=== PATIENT | female | born 1990 | race Caucasian/White ===

== ENCOUNTER 2017-07-10 21:11 | Emergency (ER) ==
[2017-07-10 21:24] VITALS: BP 126/85; TEMP 99.1; BMI 30.3
[2017-07-10] MEDS ORDERED: LIDOCAINE HCL 1% SDV ONE (22:01)
[2017-07-10] MEDS ORDERED: LIDOCAINE HCL 1% SDV SUBCUT STA (22:25)
[2017-07-10] MEDS ORDERED: LIDOCAINE HCL 4% 5 ML AMP INJ STA ×2 (22:40→23:04)
[2017-07-10] MEDS ORDERED: LIDOCAINE HCL 4% 5 ML AMP ONE (22:48)
[2017-07-10] MEDS ORDERED: LIDOCAINE 2% 20 ML MDV INJ STA (22:50)
[2017-07-10] MEDS ORDERED: LIDOCAINE 2% 2ML SDV INJ STA (23:04)
[2017-07-10] MEDS ORDERED: LIDOCAINE 2% 20 ML MDV ONE (23:07)
[2017-07-10] MEDS ORDERED: BACTRIM DS 800/160 MG PO STA (23:07)
--- NOTE | 2017-07-10 23:11 | ED.PDOC ---
General ED Provider: Dr. CHALINO POWELL Chief Complaint: Abscess Stated Complaint: Patient is a 27 year old female who comes to the ER with complaints of Warm, swollen, red, Fluctuant and painful area to left axilla with no drainage at home. Time Seen by Physician: 23:08 Mode of Arrival: Walk-In Information Source: Patient Exam Limitations: No limitations Nursing and Triage Documentation Reviewed and Agree: Yes Reviewed sepsis parameters & appropriate labs ordered?: No System Inflammatory Response Syndrome: Not Applicable Sepsis Protocol: For patient's 13 years and over: Temp is 96.8 and below OR 101 and greater Pulse >90 BPM Resp >20/minute Acutely Altered Mental Status Are patient's symptoms suggestive of a new infection, such as: -Pneumonia -Skin, Soft Tissue -Endocarditis -UTI -Bone, Joint Infection -Implantable Device -Acute Abdominal Infection -Wound Infection -Meningitis -Blood Stream Catheter Infection -Unknown System Inflammatory Response Syndrome: Not Applicable Review of Systems - Review Of Systems Constitutional: Reports: No symptoms Eyes: Reports: No symptoms Ears, Nose, Mouth, Throat: Reports: No symptoms Respiratory: Reports: No symptoms Cardiac: Reports: No symptoms GI: Reports: No symptoms : Reports: No symptoms Musculoskeletal: Reports: Joint pain (Left arm pain in area of abscess. ) Skin: Reports: Lesions, Lumps, Rash Neurological: Reports: No symptoms Endocrine: Reports: No symptoms Hematologic/Lymphatic: Reports: No symptoms All Other Systems: Reviewed and Negative Past Medical History - Past Medical History Previously Healthy: Yes Endocrine: Reports: None Cardiovascular: Reports: None Respiratory: Reports: None Hematological: Reports: None Gastrointestinal: Reports: None Genitourinary: Reports: Kidney stones Neuro/Psych: Reports: Anxiety, Depression, Bipolar Disorder Musculoskeletal: Reports: None Cancer: Reports: None Last Menstrual Period: 3-4 WEEK AGO - Surgical History General Surgical History: Reports: Tubal ligation, (x2), Tonsillectomy , Adenoidectomy, Other (Renal stent ) - Family History Family History: Reports: None - Social History Smoking Status: Current every day smoker, Heavy tobacco smoker Hx Substance Use: No Alcohol Screening: Occasionally - Immunizations Tetanus Shot up to Date: Yes Physical Exam - Physical Exam Appearance: Ill-appearing, Obese Ill-appearing: Mild Pain Distress: Severe Neck: Supple Respiratory: Airway patent, Breath sounds clear, Breath sounds equal, Respirations nonlabored Cardiovascular: RRR, Pulses normal, No rub, No murmur GI/: Soft, Nontender, No masses, Bowel sounds normal, No Organomegaly Musculoskeletal: Normal strength, ROM intact, No edema, No calf tenderness Skin: Warm, Dry Neurological: Sensation intact, Alert Psychiatric: Anxious Procedures - Incision and Drainage Site: left Armpit Instrument Used: 11 Blade I & D Procedure: Yes: Betadine Prep, Sterile drapes applied, Sterile dressing applied, Packing placed Lidocaine Used: Yes (1%, 2%, 4 % ) Type of Drainage: Present: Pus, Blood Irrigated: Yes Progress: Tolerated poorly at first the well after more lidocaine. Initially had requested no lidocaine Critical Care Note - Critical Care Note Total Time (mins): 0 Course - Course Orders, Labs, Meds: Orders Category Date Time Status WOUND CULTURE Stat LAB 07/10/17 23:30 Completed Ed After Hour Supply Med [Ed After Hours Supply Med MEDS 07/10/17 23:17 Discontinued Sent Home] 1 each PO ONCE ONE Hydrocodone Bit/Acetaminophen [[place] 5-325] MEDS 07/10/17 23:16 Discontinued 1 tab .ROUTE .STK-MED ONE Hydrocodone Bit/Acetaminophen [[place] 5-325] MEDS 07/10/17 23:17 Discontinued 1 tab PO ONCE STA Lidocaine HCl Inj [Lidocaine 2% 20 ml Mdv] MEDS 07/10/17 23:07 Discontinued 1 ml .ROUTE .STK-MED ONE Lidocaine HCl Inj [Lidocaine 2% 20 ml Mdv] MEDS 07/10/17 22:50 Discontinued 8 ml INJ ONCE STA Lidocaine HCl [Lidocaine 2% 2Ml Sdv] MEDS 07/10/17 23:04 Discontinued 1 ml INJ ONCE STA Lidocaine HCl/Pf [Lidocaine HCl 1% Sdv] MEDS 07/10/17 22:01 Discontinued 5 ml .ROUTE .STK-MED ONE Lidocaine HCl/Pf [Lidocaine HCl 1% Sdv] MEDS 07/10/17 22:25 Discontinued 5 ml SUBCUT ONCE STA Lidocaine HCl/Pf [Lidocaine HCl 4% 5 ml Amp] MEDS 07/10/17 22:48 Discontinued 1 ml .ROUTE .STK-MED ONE Lidocaine HCl/Pf [Lidocaine HCl 4% 5 ml Amp] MEDS 07/10/17 23:04 Discontinued 1 ml INJ ONCE STA Lidocaine HCl/Pf [Lidocaine HCl 4% 5 ml Amp] MEDS 07/10/17 22:40 Discontinued 5 ml INJ ONCE STA Sulfamethoxazole/Trimethoprim [Bactrim Ds 800/160 mg] MEDS 07/10/17 23:07 Discontinued 1 tab PO ONCE STA Medications Discontinued Medications Generic Name Dose Route Start Last Admin Trade Name Jose E PRN Reason Stop Dose Admin Hydrocodone Bitart/Acetaminophen 1 tab 07/10/17 23:17 07/10/17 23:34 [place] 5-325 PO 07/10/17 23:18 1 tab ONCE STA Administration Lidocaine HCl 1 ml 07/10/17 23:04 07/10/17 23:41 Lidocaine 2% 2ml Sdv INJ 07/10/17 23:05 Not Given ONCE STA Lidocaine HCl 1 ml 07/10/17 23:04 Lidocaine Hcl 4% 5 Ml Amp INJ 07/10/17 23:05 ONCE STA Lidocaine HCl 5 ml 07/10/17 22:25 07/10/17 22:50 Lidocaine Hcl 1% Sdv SUBCUT 07/10/17 22:26 Not Given ONCE STA Lidocaine HCl 8 ml 07/10/17 22:50 07/10/17 22:50 Lidocaine 2% 20 Ml Mdv INJ 07/10/17 22:51 8 ml ONCE STA Administration Lidocaine HCl 5 ml 07/10/17 22:40 07/10/17 22:40 Lidocaine Hcl 4% 5 Ml Amp INJ 07/10/17 22:41 5 ml ONCE STA Administration Miscellaneous Information 1 each 07/10/17 23:17 07/10/17 23:33 Ed After Hours Supply Med Sent Home PO 07/10/17 23:18 Not Given ONCE ONE Protocol Trimethoprim/Sulfamethoxazole 1 tab 07/10/17 23:07 07/10/17 23:32 Bactrim Ds 800/160 Mg PO 07/10/17 23:08 1 tab ONCE STA Administration Vital Signs: Temp Pulse Resp BP Pulse Ox 07/10/17 21:12 99.1 F 97 H 18 126/85 98 Departure - Departure Time of Disposition: 23:14 Disposition: HOME SELF-CARE Discharge Problem: Abscess Instructions: Abscess (ED) Condition: Stable Pt referred to PMD for follow-up: Yes IPMP verified?: No Additional Instructions: Follow up with PCP or ER in 2 days to have packing changed. Take medications as prescribed Prescriptions: Hydrocodone/Acetaminophen [[place] 5-325 Tablet] 1 tab PO Q6HR PRN #12 tablet PRN Reason: PAIN Ibuprofen [Motrin] 600 mg PO Q6H PRN #30 tablet PRN Reason: Analgesia Mupirocin Calcium [Bactroban Nasal] 1 gm NS BEDTIME #80 oint...g. Sulfamethoxazole/Trimethoprim [Bactrim Ds Tablet] 1 each PO BID #20 tablet Allergies/Adverse Reactions: Allergies Penicillins Adverse Reaction (Verified 07/10/17 21:20) Itching Home Medications: Ambulatory Orders Hydrocodone/Acetaminophen [[place] 5-325 Tablet] 1 tab PO Q6HR PRN #12 tablet 10/20 Ibuprofen [Motrin] 600 mg PO Q6H PRN #30 tablet 07/10/17 Mupirocin Calcium [Bactroban Nasal] 1 gm NS BEDTIME #80 oint...g. 07/10/17 Sulfamethoxazole/Trimethoprim [Bactrim Ds Tablet] 1 each PO BID #20 tablet 07/10 Disposition Discussed With: Patient, Family
[2017-07-10] MEDS ORDERED: NORCO 5-325 ONE (23:16)
[2017-07-10] MEDS ORDERED: NORCO 5-325 PO STA (23:17)
[2017-07-10] MEDS ORDERED: ED AFTER HOURS SUPPLY MED SENT HOME PO ONE (23:17)
== END 2017-07-10 23:50 | disposition home or self-care (01) ==
LOC: ED 21:11
DX: L02.412 Cutaneous abscess of left axilla (principal); F17.210 Nicotine dependence, cigarettes, uncomplicated
CPT/HCPCS: 87070; 87186; 99283